=== PATIENT | male | born 1950 | race Caucasian/White ===

== ENCOUNTER 2018-03-22 03:36 | Inpatient (IN) | payer MEDICARE, OTHER ==
[2018-03-22] VITALS (37 sets, daily range): BP systolic 139–212; BP diastolic 70–99
[~2018-03-22] VITALS: Ht 180.3 cm; Wt 76.3 kg
[2018-03-22] MEDS ORDERED: NITROGLYCERIN PREMIX 250 ML IV ONE ×2 (03:59→04:00)
[2018-03-22] MEDS ORDERED: dilTIAZem IV PUSH 25 MG/5 ML VIAL IVP ONE ×2 (04:00→04:30)
[2018-03-22] MEDS ORDERED: dilTIAZem INJ 125 MG in IV DEXTROSE 5% 100ML 100 ML IV PRN (04:00)
[2018-03-22 04:34] LABS: BASO # 0.1 x10^3/uL (0.0-0.2); BASO % 1 % (0-3); EOS # 0.2 x10^3/uL (0.0-0.7); EOS % 1 % (0-3); HEMATOCRIT 56.8 % (39.0-53.0); HEMOGLOBIN 19.5 g/dL (13.0-17.5); LYMPH # 3.3 x10^3/uL (1.0-4.8); LYMPH % 21 % (24-48); MEAN CORPUSCULAR HEMOGLOBIN 30 pg (25-35); MEAN CORPUSCULAR HGB CONC 34 g/dL (31-37); MEAN CORPUSCULAR VOLUME 87 fL (79-100); MONO # 1.4 x10^3/uL (0.0-1.1); MONO % 9 % (0-9); NEUT # 10.5 x10^3uL (1.8-7.7); NEUT % 68 % (31-73); PLATELET COUNT 283 x10^3/uL (140-400); RED BLOOD COUNT 6.51 x10^6/uL (4.30-5.70); RED CELL DISTRIBUTION WIDTH 14.4 % (11.5-14.5); WHITE BLOOD COUNT 15.6 x10^3/uL (4.0-11.0)
[2018-03-22 04:45] LABS: PROTHROMBIN TIME PATIENT 12.8 SEC (11.7-14.0)
[2018-03-22] MEDS ORDERED: IV NORMAL SALINE 1000ML BAG 1,000 ML IV ONE (04:45)
[2018-03-22 04:47] LABS: CALCIUM 9.5 mg/dL (8.5-10.1); CREATININE 0.9 mg/dL (0.7-1.3); GFR 83.9; POTASSIUM 4.2 mmol/L (3.5-5.1)
[2018-03-22 04:52] LABS: ALBUMIN/GLOBULIN RATIO 1.1 (1.0-1.7); MAGNESIUM 2.1 mg/dL (1.8-2.4); TOTAL BILIRUBIN 0.5 mg/dL (0.2-1.0); TOTAL PROTEIN 7.7 g/dL (6.4-8.2)
[2018-03-22] MEDS ORDERED: APIXABAN 5 MG TABLET. PO ONE (05:00)
[2018-03-22] MEDS ORDERED: NITROGLYCERIN SUBLINGUAL 0.4 MG BOTTLE OF 25. SL PRN (05:00)
[2018-03-22 05:22] LABS: BILIRUBIN,URINE NEGATIVE (NEG); CLARITY,URINE CLEAR; COLOR,URINE YELLOW; NITRITE,URINE NEGATIVE (NEG); PH,URINE 7.5; PROTEIN,URINE NEGATIVE (NEG-TRACE); UROBILINOGEN,URINE 0.2 mg/dL (0.2 mg/dL)
[2018-03-22 05:29] LABS: BARBITURATES NEG (NEG); BENZODIAZEPINES NEG (NEG); CANNABINOIDS NEG (NEG); COCAINE NEG (NEG); METHADONE NEG (NEG); OPIATES NEG (NEG); PHENCYCLIDINE NEG (NEG)
[2018-03-22 05:31] LABS: AMPHETAMINE/METHAMPHETAMINE NEG (NEG)
--- NOTE | 2018-03-22 05:36 | PHYS DOC ---
Past Medical History Past Medical History: Hypertension Past Surgical History: No Surgical History Alcohol Use: Sober Drug Use: None Adult General Chief Complaint Chief Complaint: CHEST PAIN-CARDIAC NATURE HPI HPI Patient is a 67 year old 67 YO M BIBA WITH CP sudden onset while watching TV 1 hour prior to arrival so she with heart palpitations and left shoulder discomfort heart rate of 160s with paramedics never happened to him before has not seen a doctor in 7 years no definite medical history he does occasionally drink but he stopped about 3 months ago. Denies drug use. No previous history of atrial fibrillation . PAIN MODEATE PRESSURE RADIATING TO SHOULDER IMPROVED NOW Review of Systems Review of Systems Constitutional: Denies fever or chills [] Eyes: Denies change in visual acuity, redness, or eye pain [] HENT: Denies nasal congestion or sore throat [] Respiratory: Musculoskeletal: Denies back pain or joint pain [] Neurologic: Denies headache, focal weakness or sensory changes [] All other systems were reviewed and found to be within normal limits, except as documented in this note. Current Medications Current Medications Current Medications Medications (Trade) Dose Ordered Sig/Brooks Start Time Stop Time Status Last Admin Dose Admin Apixaban (Eliquis) 5 mg 1X ONCE 03/22/18 05:00 03/22/18 05:01 DC 03/22/18 05:03 5 MG Diltiazem HCl (Cardizem Iv Push) 20 mg 1X ONCE 03/22/18 04:30 03/22/18 04:31 DC 03/22/18 04:20 20 MG Diltiazem HCl 125 mg/Dextrose 125 ml @ 5 mls/hr CONT PRN 03/22/18 04:00 03/22/18 04:10 5 MLS/HR Nitroglycerin (Nitrostat) 0.4 mg PRN Q5MIN PRN 03/22/18 05:00 03/23/18 04:59 Nitroglycerin/ Dextrose 250 ml @ As Directed STK-MED ONCE 03/22/18 03:59 03/22/18 04:00 DC Sodium Chloride 1,000 ml @ 1,000 mls/hr 1X ONCE 03/22/18 04:45 03/22/18 05:44 Allergies Allergies Allergies Coded Allergies Type Severity Reaction Last Updated Verified No Known Drug Allergies 03/22/18 No Physical Exam Physical Exam Constitutional: Well developed, well nourished, MILD DISTRESS non-toxic appearance. [] HENT: Normocephalic, atraumatic, bilateral external ears normal, oropharynx moist, no oral exudates, nose normal. [] Eyes: PERRLA, EOMI, conjunctiva normal, no discharge. [] Neck: Normal range of motion, no tenderness, supple, no stridor. [] Cardiovascular:TACHY IRREGULAR Lungs & Thorax: Bilateral breath sounds clear to auscultation [] Abdomen: Bowel sounds normal, soft, no tenderness, no masses, no pulsatile masses. [] Skin: Warm, dry, no erythema, no rash. [] Back: No tenderness, no CVA tenderness. [] Extremities: No tenderness, no cyanosis, no clubbing, ROM intact, no edema. [] Neurologic: Alert and oriented X 3, normal motor function, normal sensory function, no focal deficits noted. [] Psychologic: Affect normal, judgement normal, mood normal. [] Current Patient Data Vital Signs Vital Signs Date Time Temp Pulse Resp B/P (MAP) Pulse Ox O2 Delivery O2 Flow Rate FiO2 03/22/18 04:20 144 198/113 03/22/18 04:19 97.7 25 95 Room Air 97.7 Lab Values Laboratory Tests Test 03/22/18 04:20 White Blood Count 15.6 x10^3/uL (4.0-11.0) H Red Blood Count 6.51 x10^6/uL (4.30-5.70) H Hemoglobin 19.5 g/dL (13.0-17.5) H Hematocrit 56.8 % (39.0-53.0) H Mean Corpuscular Volume 87 fL (79-100) Mean Corpuscular Hemoglobin 30 pg (25-35) Mean Corpuscular Hemoglobin Concent 34 g/dL (31-37) Red Cell Distribution Width 14.4 % (11.5-14.5) Platelet Count 283 x10^3/uL (140-400) Neutrophils (%) (Auto) 68 % (31-73) Lymphocytes (%) (Auto) 21 % (24-48) L Monocytes (%) (Auto) 9 % (0-9) Eosinophils (%) (Auto) 1 % (0-3) Basophils (%) (Auto) 1 % (0-3) Neutrophils # (Auto) 10.5 x10^3uL (1.8-7.7) H Lymphocytes # (Auto) 3.3 x10^3/uL (1.0-4.8) Monocytes # (Auto) 1.4 x10^3/uL (0.0-1.1) H Eosinophils # (Auto) 0.2 x10^3/uL (0.0-0.7) Basophils # (Auto) 0.1 x10^3/uL (0.0-0.2) Prothrombin Time 12.8 SEC (11.7-14.0) Prothrombin Time INR 1.0 (0.8-1.1) Sodium Level 140 mmol/L (136-145) Potassium Level 4.2 mmol/L (3.5-5.1) Chloride Level 102 mmol/L (98-107) Carbon Dioxide Level 25 mmol/L (21-32) Anion Gap 13 (6-14) Blood Urea Nitrogen 11 mg/dL (8-26) Creatinine 0.9 mg/dL (0.7-1.3) Estimated GFR (Cockcroft-Gault) 83.9 BUN/Creatinine Ratio 12 (6-20) Glucose Level 126 mg/dL (70-99) H Calcium Level 9.5 mg/dL (8.5-10.1) Magnesium Level 2.1 mg/dL (1.8-2.4) Total Bilirubin 0.5 mg/dL (0.2-1.0) Aspartate Amino Transferase (AST) 16 U/L (15-37) Alanine Aminotransferase (ALT) 17 U/L (16-63) Alkaline Phosphatase 101 U/L (46-116) Troponin I Quantitative < 0.017 ng/mL (0.000-0.055) ZQ-Lcj-Y-Type Natriuretic Peptide 323 pg/mL (0-124) H Total Protein 7.7 g/dL (6.4-8.2) Albumin 4.0 g/dL (3.4-5.0) Albumin/Globulin Ratio 1.1 (1.0-1.7) Thyroid Stimulating Hormone (TSH) 3.030 uIU/mL (0.358-3.74) Ethyl Alcohol Level < 10 mg/dL (0-10) Laboratory Tests 03/22/18 04:20 Laboratory Tests 03/22/18 04:20 EKG EKG [] Interpretation Time: EKG shows a A. fib RVR rate [address] changes laterally there is some borderline ST elevation in aVL only on repeat EKG done at 4:36 AM after rate control the rate is now 108 A. fib is seen the ST changes are improved but still some borderline ST depressions in the lateral leads. This is interpreted by me the time of encounter no definite STEMI was identified Radiology/Procedures Radiology/Procedures [] Impressions: Chest x-ray interpreted by me the time of encounter showed normal lungs normal mediastinum normal bones Course & Med Decision Making Course & Med Decision Making Critical care time was 45 minutes exclusive of procedures.Pertinent Labs and Imaging studies reviewed. (See chart for details) []67-year-old male with hypertensive urgency and atrial fibrillation with RVR requiring intravenous drips and titration we started with diltiazem drip that improved her heart rate down into the 04/11/29 range we are still working on that. The nitro drip did improve his blood pressure we temporarily turned off and his pressure spiked again so he will be admitted to [facility] with a nitroglycerin and diltiazem drip. Labwork is looking fairly reassuring for now I did order a dose of QLIQUIS given his elevated blood pressure in his age she likely will meet criteria for that based onCHADS2 score NOTED THE WBC, CXR NEG FOR PNA, ADDED ON A U/A PENDING AT THSI TIME. NOTED THE ELEVATED HB, PT WAS HYDRATED. Dragon Disclaimer Dragon Disclaimer This electronic medical record was generated, in whole or in part, using a voice recognition dictation system. Departure Departure Impression: Primary Impression: Atrial fibrillation with RVR Disposition: ADMITTED INPATIENT Admitting Physician: Xie. Loya Condition: STABLE Referrals: NO PCP (PCP) MISTY LOONEY MD Mar 22, 2018 05:35
[2018-03-22 05:37] LABS: BACTERIA,URINE 0 /HPF (0-FEW); SQUAMOUS EPITHELIAL CELL,UR OCC /LPF; WBC,URINE 0 /HPF (0-4)
--- NOTE | 2018-03-22 07:43 | RAD ---
Portable chest, 03/22/2018: HISTORY: Shortness of breath The heart size is normal. There is mild tortuosity of the thoracic aorta. There are calcified granulomata in the lungs. No pulmonary infiltrate is seen. There is no evidence of pleural fluid. IMPRESSION: No acute cardiopulmonary abnormality is detected. Electronically signed by: Robbin Givens MD (03/22/2018 7:39 AM) [facility]
--- NOTE | 2018-03-22 08:13 | EKG ---
[facility] [address] [place] [address] Test Date: 2018-03-22 Test Time: 04:36:14 Pat Name: GABE LOVE Department: Room: 207 Gender: Male Inspector Exhaust Emissions: : 1950 Requested By: MISTY LOONEY Order Number: [id number] Reading MD: Avery Francis Measurements Intervals [place] Rate: 108 P: AK: QRS: 56 QRSD: 80 T: 91 QT: 314 QTc: 424 Interpretive Statements ATRIAL FIBRILLATION Electronically Signed On 03-25-2018 17:16:14 [employer] CLE[employer]ER by Avery Francis
[2018-03-22] MEDS ORDERED: traMADol 50 MG TABLET PO PRN (10:00)
[2018-03-22] MEDS ORDERED: ACETAMINOPHEN 325 MG TABLET. PO PRN (10:00)
[2018-03-22] MEDS ORDERED: ONDANSETRON PF 4 MG/2 ML VIAL. IV PRN (10:00)
[2018-03-22] MEDS ORDERED: DOCUSATE SODIUM 100 MG CAPSULE. PO PRN (10:00)
[2018-03-22] MEDS ORDERED: MORPHINE SULFATE 4 MG/ML VIAL. IV PRN (10:00)
[2018-03-22] MEDS: LISINOPRIL 20 MG TABLET PO SCH (10:24)
--- NOTE | 2018-03-22 11:06 | PDOC2 ---
CONSULT Date of Consult Date of Consult DATE: 03/22/18 TIME: 11:05 Reason for Consult Reason for Consult: Atrial fibrillation Referring Physician Referring Physician: Dr. Costa Identification/Chief Complaint Chief Complaint Chest pain Source Source: Chart review, Patient History of Present Illness Reason for Visit: 67-year-old male presented complaining of retrosternal chest pain associated with dizziness and near syncope. He was found to have atrial fibrillation with rapid ventricular response and accelerated hypertension and admitted for further management. He is presented chest pain-free. He denied any previous cardiac history. He also denied any orthopnea/PND, palpitations. Past Medical History Cardiovascular: HTN Past Surgical History Past Surgical History: No pertinent history Family History Family History Negative for premature coronary artery disease Social History Social History Patient smokes one pack of cigarettes daily and admitted to occasional intake of alcohol. He denied any drug abuse. Current Medications Current Medications Current Medications Diltiazem HCl (Cardizem Iv Push) 10 mg 1X ONCE IVP Last administered on at 04:05; Start 03/22/18 at 04:00; Stop 03/22/18 at 04:01; Status DC Diltiazem HCl 125 mg/Dextrose 125 ml @ 5 mls/hr CONT PRN IV SEE I/O RECORD Last administered on 03/22/18at 04:10; Start 03/22/18 at 04:00; Stop 03/22/18 at 21: 00 Nitroglycerin/ Dextrose 250 ml @ 0 mls/hr 1X ONCE IV Last administered on at 04:13; Start 03/22/18 at 04:00; Stop 03/22/18 at 04:01; Status DC Nitroglycerin/ Dextrose 250 ml @ As Directed STK-MED ONCE IV ; Start 03/22/18 at 03:59; Stop 03/22/18 at 04:00; Status DC Diltiazem HCl (Cardizem Iv Push) 20 mg 1X ONCE IVP Last administered on at 04:20; Start 03/22/18 at 04:30; Stop 03/22/18 at 04:31; Status DC Sodium Chloride 1,000 ml @ 1,000 mls/hr 1X ONCE IV Last administered on at 05:30; Start 03/22/18 at 04:45; Stop 03/22/18 at 05:44; Status DC Apixaban (Eliquis) 5 mg 1X ONCE PO Last administered on 03/22/18at 05:03; Start 03/22/18 at 05:00; Stop 03/22/18 at 05:01; Status DC Nitroglycerin (Nitrostat) 0.4 mg PRN Q5MIN PRN SL CHEST PAIN; Start 03/22/18 at 05:00; Stop 03/23/18 at 04:59 Influenza Virus Vaccine (Afluria Trivalent [id number] Syringe) 0.5 ml ONCE ONCE VAX IM ; Start 03/22/18 at 09:00; Stop 03/22/18 at 09:01; Status DC Diltiazem HCl (Cardizem 24hr Cd) 120 mg DAILY PO Last administered on 03/22/18at 09:48; Start 03/22/18 at 10:00 Apixaban (Eliquis) 5 mg BID PO ; Start 03/22/18 at 21:00 Acetaminophen (Tylenol) 650 mg PRN Q6HRS PRN PO FEVER; Start 03/22/18 at 10:00 Ondansetron HCl (Zofran) 4 mg PRN Q6HRS PRN IV NAUSEA/VOMITING; Start 03/22/18 at 10:00 Morphine Sulfate (Morphine Sulfate) 2 mg PRN Q2HR PRN IV MODERATE TO SEVERE PAIN; Start 03/22/18 at 10:00 Tramadol HCl (Ultram) 50 mg PRN Q6HRS PRN PO MILD TO MODERATE PAIN; Start at 10:00 Hydralazine HCl (Apresoline Inj) 10 mg PRN Q4HRS PRN IVP ELEVATED BP, SEE COMMENTS; Start 03/22/18 at 10:00 Docusate Sodium (Colace) 100 mg PRN DAILY PRN PO CONSTIPATION; Start 03/22/18 at 10:00 Lisinopril (Prinivil) 40 mg DAILY PO Last administered on 03/22/18at 10:24; Start 03/22/18 at 10:30 Allergies Allergies: Coded Allergies: No Known Drug Allergies (Unverified , 03/22/18) ROS PSYCHOLOGICAL ROS: No: Hallucinations Eyes: No Loss of vision HEENT: No: Epistaxis Respiratory: No: Hemoptysis, Shortness of breath Cardiovascular: yes Chest Pain Gastrointestinal: No Vomiting, No Diarrhea Genitourinary: No Hematuria Neurological: No Seizures Skin: No Rash Physical Exam General: Alert, Oriented X3 HEENT: Atraumatic, PERRLA Lungs: Clear to auscultation Heart: Regular rate Abdomen: Soft, No tenderness Extremities: No edema Psych/Mental Status: Mood NL Vitals VITALS Vital Signs Date Time Temp Pulse Resp B/P (MAP) Pulse Ox O2 Delivery O2 Flow Rate FiO2 03/22/18 10:24 68 184/87 03/22/18 08:00 Room Air 03/22/18 07:20 98.5 20 96 98.5 Labs Labs Laboratory Tests Test 03/22/18 04:20 03/22/18 05:09 03/22/18 09:42 White Blood Count 15.6 x10^3/uL (4.0-11.0) Red Blood Count 6.51 x10^6/uL (4.30-5.70) Hemoglobin 19.5 g/dL (13.0-17.5) Hematocrit 56.8 % (39.0-53.0) Mean Corpuscular Volume 87 fL (79-100) Mean Corpuscular Hemoglobin 30 pg (25-35) Mean Corpuscular Hemoglobin Concent 34 g/dL (31-37) Red Cell Distribution Width 14.4 % (11.5-14.5) Platelet Count 283 x10^3/uL (140-400) Neutrophils (%) (Auto) 68 % (31-73) Lymphocytes (%) (Auto) 21 % (24-48) Monocytes (%) (Auto) 9 % (0-9) Eosinophils (%) (Auto) 1 % (0-3) Basophils (%) (Auto) 1 % (0-3) Neutrophils # (Auto) 10.5 x10^3uL (1.8-7.7) Lymphocytes # (Auto) 3.3 x10^3/uL (1.0-4.8) Monocytes # (Auto) 1.4 x10^3/uL (0.0-1.1) Eosinophils # (Auto) 0.2 x10^3/uL (0.0-0.7) Basophils # (Auto) 0.1 x10^3/uL (0.0-0.2) Prothrombin Time 12.8 SEC (11.7-14.0) Prothromb Time International Ratio 1.0 (0.8-1.1) Sodium Level 140 mmol/L (136-145) Potassium Level 4.2 mmol/L (3.5-5.1) Chloride Level 102 mmol/L (98-107) Carbon Dioxide Level 25 mmol/L (21-32) Anion Gap 13 (6-14) Blood Urea Nitrogen 11 mg/dL (8-26) Creatinine 0.9 mg/dL (0.7-1.3) Estimated GFR (Cockcroft-Gault) 83.9 BUN/Creatinine Ratio 12 (6-20) Glucose Level 126 mg/dL (70-99) Calcium Level 9.5 mg/dL (8.5-10.1) Magnesium Level 2.1 mg/dL (1.8-2.4) Total Bilirubin 0.5 mg/dL (0.2-1.0) Aspartate Amino Transf (AST/SGOT) 16 U/L (15-37) Alanine Aminotransferase (ALT/SGPT) 17 U/L (16-63) Alkaline Phosphatase 101 U/L (46-116) Troponin I Quantitative < 0.017 ng/mL (0.000-0.055) 0.042 ng/mL (0.000-0.055) DM-Yqh-F-Type Natriuretic Peptide 323 pg/mL (0-124) Total Protein 7.7 g/dL (6.4-8.2) Albumin 4.0 g/dL (3.4-5.0) Albumin/Globulin Ratio 1.1 (1.0-1.7) Thyroid Stimulating Hormone (TSH) 3.030 uIU/mL (0.358-3.74) Ethyl Alcohol Level < 10 mg/dL (0-10) Urine Collection Type Unknown Urine Color Yellow Urine Clarity Clear Urine pH 7.5 Urine Specific [place] 1.010 Urine Protein Negative mg/dL (NEG-TRACE) Urine Glucose (UA) Negative mg/dL (NEG) Urine Ketones (Stick) Trace mg/dL (NEG) Urine Blood Trace (NEG) Urine Nitrite Negative (NEG) Urine Bilirubin Negative (NEG) Urine Urobilinogen Dipstick 0.2 mg/dL (0.2 mg/dL) Urine Leukocyte Esterase Negative (NEG) Urine RBC 3-5 /HPF (0-2) Urine WBC 0 /HPF (0-4) Urine Squamous Epithelial Cells Occ /LPF Urine Bacteria 0 /HPF (0-FEW) Urine Mucus Slight /LPF Urine Opiates Screen Neg (NEG) Urine Methadone Screen Neg (NEG) Urine Barbiturates Neg (NEG) Urine Phencyclidine Screen Neg (NEG) Urine Amphetamine/Methamphetamine Neg (NEG) Urine Benzodiazepines Screen Neg (NEG) Urine Cocaine Screen Neg (NEG) Urine Cannabinoids Screen Neg (NEG) Urine Ethyl Alcohol Neg (NEG) Laboratory Tests Test 03/22/18 04:20 03/22/18 05:09 03/22/18 09:42 White Blood Count 15.6 x10^3/uL (4.0-11.0) Red Blood Count 6.51 x10^6/uL (4.30-5.70) Hemoglobin 19.5 g/dL (13.0-17.5) Hematocrit 56.8 % (39.0-53.0) Mean Corpuscular Volume 87 fL (79-100) Mean Corpuscular Hemoglobin 30 pg (25-35) Mean Corpuscular Hemoglobin Concent 34 g/dL (31-37) Red Cell Distribution Width 14.4 % (11.5-14.5) Platelet Count 283 x10^3/uL (140-400) Neutrophils (%) (Auto) 68 % (31-73) Lymphocytes (%) (Auto) 21 % (24-48) Monocytes (%) (Auto) 9 % (0-9) Eosinophils (%) (Auto) 1 % (0-3) Basophils (%) (Auto) 1 % (0-3) Neutrophils # (Auto) 10.5 x10^3uL (1.8-7.7) Lymphocytes # (Auto) 3.3 x10^3/uL (1.0-4.8) Monocytes # (Auto) 1.4 x10^3/uL (0.0-1.1) Eosinophils # (Auto) 0.2 x10^3/uL (0.0-0.7) Basophils # (Auto) 0.1 x10^3/uL (0.0-0.2) Prothrombin Time 12.8 SEC (11.7-14.0) Prothromb Time International Ratio 1.0 (0.8-1.1) Sodium Level 140 mmol/L (136-145) Potassium Level 4.2 mmol/L (3.5-5.1) Chloride Level 102 mmol/L (98-107) Carbon Dioxide Level 25 mmol/L (21-32) Anion Gap 13 (6-14) Blood Urea Nitrogen 11 mg/dL (8-26) Creatinine 0.9 mg/dL (0.7-1.3) Estimated GFR (Cockcroft-Gault) 83.9 BUN/Creatinine Ratio 12 (6-20) Glucose Level 126 mg/dL (70-99) Calcium Level 9.5 mg/dL (8.5-10.1) Magnesium Level 2.1 mg/dL (1.8-2.4) Total Bilirubin 0.5 mg/dL (0.2-1.0) Aspartate Amino Transf (AST/SGOT) 16 U/L (15-37) Alanine Aminotransferase (ALT/SGPT) 17 U/L (16-63) Alkaline Phosphatase 101 U/L (46-116) Troponin I Quantitative < 0.017 ng/mL (0.000-0.055) 0.042 ng/mL (0.000-0.055) GP-Kdc-M-Type Natriuretic Peptide 323 pg/mL (0-124) Total Protein 7.7 g/dL (6.4-8.2) Albumin 4.0 g/dL (3.4-5.0) Albumin/Globulin Ratio 1.1 (1.0-1.7) Thyroid Stimulating Hormone (TSH) 3.030 uIU/mL (0.358-3.74) Ethyl Alcohol Level < 10 mg/dL (0-10) Urine Collection Type Unknown Urine Color Yellow Urine Clarity Clear Urine pH 7.5 Urine Specific [place] 1.010 Urine Protein Negative mg/dL (NEG-TRACE) Urine Glucose (UA) Negative mg/dL (NEG) Urine Ketones (Stick) Trace mg/dL (NEG) Urine Blood Trace (NEG) Urine Nitrite Negative (NEG) Urine Bilirubin Negative (NEG) Urine Urobilinogen Dipstick 0.2 mg/dL (0.2 mg/dL) Urine Leukocyte Esterase Negative (NEG) Urine RBC 3-5 /HPF (0-2) Urine WBC 0 /HPF (0-4) Urine Squamous Epithelial Cells Occ /LPF Urine Bacteria 0 /HPF (0-FEW) Urine Mucus Slight /LPF Urine Opiates Screen Neg (NEG) Urine Methadone Screen Neg (NEG) Urine Barbiturates Neg (NEG) Urine Phencyclidine Screen Neg (NEG) Urine Amphetamine/Methamphetamine Neg (NEG) Urine Benzodiazepines Screen Neg (NEG) Urine Cocaine Screen Neg (NEG) Urine Cannabinoids Screen Neg (NEG) Urine Ethyl Alcohol Neg (NEG) Assessment/Plan Assessment/Plan 1. Atrial fibrillation, new onset. He is presently back in sinus rhythm. Change Cardizem to by mouth and start eliquis for stroke prophylaxis. Check 2-D echo to assess LV systolic function. 2. Accelerated hypertension: Agree with adding lisinopril in addition to Cardizem for better control. Check renal arterial duplex scan. 3. Chest pain most probably secondary to accelerated hypertension. Slight troponin elevation probably demand ischemia secondary to RVR and uncontrolled hypertension. Plan for Lexiscan nuclear stress test to rule out ischemia. Thank you for your consultation. MILIND ABDALLA MD Mar 22, 2018 11:06
--- NOTE | 2018-03-22 12:10 | PDOC1 ---
History and Physical Date of Admission Date of Admission 03/22/18 Identification/Chief Complaint Chief Complaint chest pain Source Source: Chart review, Patient History of Present Illness History of Present Illness Patient is a 67 year old M with h/o HTN, but no PCP or taking meds, came to ER for chest pain for 1 d. Pt said his BP ws not controlled well before so he stop taking meds. He started to have substernal chest pain yesterday, while watching tv, radiating to left shoulder, with diaphoresis, no sob, or N/V, denies palpitation. THE pain was 6/10, constant, gone in ER. he does occasionally drink but he stopped about 3 months ago. Denies drug use. No previous history of atrial fibrillation . he was found rapid afib in ER, now sinus. BP >200. on cardizem and nitro drip. Past Medical History Cardiovascular: HTN Past Surgical History Past Surgical History: No pertinent history Family History Family History: Hypertension Social History Smoke: 1 pack per day ALCOHOL: rare Drugs: None Current Medications Current Medications Current Medications Medications (Trade) Dose Ordered Sig/Brooks Start Time Stop Time Status Last Admin Dose Admin Acetaminophen (Tylenol) 650 mg PRN Q6HRS PRN 03/22/18 10:00 Apixaban (Eliquis) 5 mg BID 03/22/18 21:00 Diltiazem HCl (Cardizem 24hr Cd) 120 mg DAILY 03/22/18 10:00 03/22/18 09:48 120 MG Diltiazem HCl (Cardizem Iv Push) 20 mg 1X ONCE 03/22/18 04:30 03/22/18 04:31 DC 03/22/18 04:20 20 MG Diltiazem HCl 125 mg/Dextrose 125 ml @ 5 mls/hr CONT PRN 03/22/18 04:00 03/22/18 21:00 03/22/18 04:10 5 MLS/HR Docusate Sodium (Colace) 100 mg PRN DAILY PRN 03/22/18 10:00 Hydralazine HCl (Apresoline Inj) 10 mg PRN Q4HRS PRN 03/22/18 10:00 Influenza Virus Vaccine (Afluria Trivalent [id number] Syringe) 0.5 ml ONCE ONCE 03/22/18 09:00 03/22/18 09:01 DC Lisinopril (Prinivil) 40 mg DAILY 03/22/18 10:30 03/22/18 10:24 40 MG Morphine Sulfate (Morphine Sulfate) 2 mg PRN Q2HR PRN 03/22/18 10:00 Nitroglycerin (Nitrostat) 0.4 mg PRN Q5MIN PRN 03/22/18 05:00 03/23/18 04:59 Nitroglycerin/ Dextrose 250 ml @ As Directed STK-MED ONCE 03/22/18 03:59 03/22/18 04:00 DC Ondansetron HCl (Zofran) 4 mg PRN Q6HRS PRN 03/22/18 10:00 Sodium Chloride 1,000 ml @ 1,000 mls/hr 1X ONCE 03/22/18 04:45 03/22/18 05:44 DC 03/22/18 05:30 1,000 MLS/HR Tramadol HCl (Ultram) 50 mg PRN Q6HRS PRN 03/22/18 10:00 Allergies Allergies Allergies Coded Allergies Type Severity Reaction Last Updated Verified No Known Drug Allergies 03/22/18 No ROS Review of System CONSTITUTIONAL: No fever or chills EYES: No recent changes SKIN: No rash or itching CARDIOVASCULAR: No chest pain, syncope, palpitations, or edema RESPIRATORY: No SOB or cough GASTROINTESTINAL: No nausea, vomiting or abdominal pain NEUROLOGICAL: No headaches or weakness ENDOCRINE: No cold or heat intolerance GENITOURINARY: No urgency or frequency of urination MUSCULOSKELETAL: No back pain or joint pain LYMPHATICS: No enlarged lymph nodes PSYCHIATRIC: No anxiety or depression Physical Exam Physical Exam GEN.: No apparent distress. Alert and oriented. HEENT: Head is normocephalic, atraumatic NECK: Supple. LUNGS: bl decreased bs. HEART: RRR, S1, S2 present. Peripheral pulses intact ABDOMEN: Soft, nontender. Positive bowel sounds. EXTREMITIES: Without any cyanosis. NEUROLOGIC: Normal speech, normal tone PSYCHIATRIC: Normal affect, normal mood. SKIN: No ulcerations Vitals Vitals Vital Signs Date Time Temp Pulse Resp B/P (MAP) Pulse Ox O2 Delivery O2 Flow Rate FiO2 03/22/18 11:00 97.8 72 16 164/83 (110) 96 Room Air 97.8 Labs Labs Laboratory Tests Test 03/22/18 04:20 03/22/18 05:09 03/22/18 09:42 White Blood Count 15.6 x10^3/uL (4.0-11.0) Red Blood Count 6.51 x10^6/uL (4.30-5.70) Hemoglobin 19.5 g/dL (13.0-17.5) Hematocrit 56.8 % (39.0-53.0) Mean Corpuscular Volume 87 fL (79-100) Mean Corpuscular Hemoglobin 30 pg (25-35) Mean Corpuscular Hemoglobin Concent 34 g/dL (31-37) Red Cell Distribution Width 14.4 % (11.5-14.5) Platelet Count 283 x10^3/uL (140-400) Neutrophils (%) (Auto) 68 % (31-73) Lymphocytes (%) (Auto) 21 % (24-48) Monocytes (%) (Auto) 9 % (0-9) Eosinophils (%) (Auto) 1 % (0-3) Basophils (%) (Auto) 1 % (0-3) Neutrophils # (Auto) 10.5 x10^3uL (1.8-7.7) Lymphocytes # (Auto) 3.3 x10^3/uL (1.0-4.8) Monocytes # (Auto) 1.4 x10^3/uL (0.0-1.1) Eosinophils # (Auto) 0.2 x10^3/uL (0.0-0.7) Basophils # (Auto) 0.1 x10^3/uL (0.0-0.2) Prothrombin Time 12.8 SEC (11.7-14.0) Prothromb Time International Ratio 1.0 (0.8-1.1) Sodium Level 140 mmol/L (136-145) Potassium Level 4.2 mmol/L (3.5-5.1) Chloride Level 102 mmol/L (98-107) Carbon Dioxide Level 25 mmol/L (21-32) Anion Gap 13 (6-14) Blood Urea Nitrogen 11 mg/dL (8-26) Creatinine 0.9 mg/dL (0.7-1.3) Estimated GFR (Cockcroft-Gault) 83.9 BUN/Creatinine Ratio 12 (6-20) Glucose Level 126 mg/dL (70-99) Calcium Level 9.5 mg/dL (8.5-10.1) Magnesium Level 2.1 mg/dL (1.8-2.4) Total Bilirubin 0.5 mg/dL (0.2-1.0) Aspartate Amino Transf (AST/SGOT) 16 U/L (15-37) Alanine Aminotransferase (ALT/SGPT) 17 U/L (16-63) Alkaline Phosphatase 101 U/L (46-116) Troponin I Quantitative < 0.017 ng/mL (0.000-0.055) 0.042 ng/mL (0.000-0.055) RP-Kri-Q-Type Natriuretic Peptide 323 pg/mL (0-124) Total Protein 7.7 g/dL (6.4-8.2) Albumin 4.0 g/dL (3.4-5.0) Albumin/Globulin Ratio 1.1 (1.0-1.7) Thyroid Stimulating Hormone (TSH) 3.030 uIU/mL (0.358-3.74) Ethyl Alcohol Level < 10 mg/dL (0-10) Urine Collection Type Unknown Urine Color Yellow Urine Clarity Clear Urine pH 7.5 Urine Specific [place] 1.010 Urine Protein Negative mg/dL (NEG-TRACE) Urine Glucose (UA) Negative mg/dL (NEG) Urine Ketones (Stick) Trace mg/dL (NEG) Urine Blood Trace (NEG) Urine Nitrite Negative (NEG) Urine Bilirubin Negative (NEG) Urine Urobilinogen Dipstick 0.2 mg/dL (0.2 mg/dL) Urine Leukocyte Esterase Negative (NEG) Urine RBC 3-5 /HPF (0-2) Urine WBC 0 /HPF (0-4) Urine Squamous Epithelial Cells Occ /LPF Urine Bacteria 0 /HPF (0-FEW) Urine Mucus Slight /LPF Urine Opiates Screen Neg (NEG) Urine Methadone Screen Neg (NEG) Urine Barbiturates Neg (NEG) Urine Phencyclidine Screen Neg (NEG) Urine Amphetamine/Methamphetamine Neg (NEG) Urine Benzodiazepines Screen Neg (NEG) Urine Cocaine Screen Neg (NEG) Urine Cannabinoids Screen Neg (NEG) Urine Ethyl Alcohol Neg (NEG) Laboratory Tests Test 03/22/18 04:20 03/22/18 05:09 03/22/18 09:42 White Blood Count 15.6 x10^3/uL (4.0-11.0) Red Blood Count 6.51 x10^6/uL (4.30-5.70) Hemoglobin 19.5 g/dL (13.0-17.5) Hematocrit 56.8 % (39.0-53.0) Mean Corpuscular Volume 87 fL (79-100) Mean Corpuscular Hemoglobin 30 pg (25-35) Mean Corpuscular Hemoglobin Concent 34 g/dL (31-37) Red Cell Distribution Width 14.4 % (11.5-14.5) Platelet Count 283 x10^3/uL (140-400) Neutrophils (%) (Auto) 68 % (31-73) Lymphocytes (%) (Auto) 21 % (24-48) Monocytes (%) (Auto) 9 % (0-9) Eosinophils (%) (Auto) 1 % (0-3) Basophils (%) (Auto) 1 % (0-3) Neutrophils # (Auto) 10.5 x10^3uL (1.8-7.7) Lymphocytes # (Auto) 3.3 x10^3/uL (1.0-4.8) Monocytes # (Auto) 1.4 x10^3/uL (0.0-1.1) Eosinophils # (Auto) 0.2 x10^3/uL (0.0-0.7) Basophils # (Auto) 0.1 x10^3/uL (0.0-0.2) Prothrombin Time 12.8 SEC (11.7-14.0) Prothromb Time International Ratio 1.0 (0.8-1.1) Sodium Level 140 mmol/L (136-145) Potassium Level 4.2 mmol/L (3.5-5.1) Chloride Level 102 mmol/L (98-107) Carbon Dioxide Level 25 mmol/L (21-32) Anion Gap 13 (6-14) Blood Urea Nitrogen 11 mg/dL (8-26) Creatinine 0.9 mg/dL (0.7-1.3) Estimated GFR (Cockcroft-Gault) 83.9 BUN/Creatinine Ratio 12 (6-20) Glucose Level 126 mg/dL (70-99) Calcium Level 9.5 mg/dL (8.5-10.1) Magnesium Level 2.1 mg/dL (1.8-2.4) Total Bilirubin 0.5 mg/dL (0.2-1.0) Aspartate Amino Transf (AST/SGOT) 16 U/L (15-37) Alanine Aminotransferase (ALT/SGPT) 17 U/L (16-63) Alkaline Phosphatase 101 U/L (46-116) Troponin I Quantitative < 0.017 ng/mL (0.000-0.055) 0.042 ng/mL (0.000-0.055) WH-Aqc-A-Type Natriuretic Peptide 323 pg/mL (0-124) Total Protein 7.7 g/dL (6.4-8.2) Albumin 4.0 g/dL (3.4-5.0) Albumin/Globulin Ratio 1.1 (1.0-1.7) Thyroid Stimulating Hormone (TSH) 3.030 uIU/mL (0.358-3.74) Ethyl Alcohol Level < 10 mg/dL (0-10) Urine Collection Type Unknown Urine Color Yellow Urine Clarity Clear Urine pH 7.5 Urine Specific [place] 1.010 Urine Protein Negative mg/dL (NEG-TRACE) Urine Glucose (UA) Negative mg/dL (NEG) Urine Ketones (Stick) Trace mg/dL (NEG) Urine Blood Trace (NEG) Urine Nitrite Negative (NEG) Urine Bilirubin Negative (NEG) Urine Urobilinogen Dipstick 0.2 mg/dL (0.2 mg/dL) Urine Leukocyte Esterase Negative (NEG) Urine RBC 3-5 /HPF (0-2) Urine WBC 0 /HPF (0-4) Urine Squamous Epithelial Cells Occ /LPF Urine Bacteria 0 /HPF (0-FEW) Urine Mucus Slight /LPF Urine Opiates Screen Neg (NEG) Urine Methadone Screen Neg (NEG) Urine Barbiturates Neg (NEG) Urine Phencyclidine Screen Neg (NEG) Urine Amphetamine/Methamphetamine Neg (NEG) Urine Benzodiazepines Screen Neg (NEG) Urine Cocaine Screen Neg (NEG) Urine Cannabinoids Screen Neg (NEG) Urine Ethyl Alcohol Neg (NEG) VTE Prophylaxis Ordered VTE Prophylaxis Devices: Yes VTE Pharmacological Prophylaxi: No Assessment/Plan Assessment/Plan chest pain, could be unstable angina, with rapid afib, HTN urgency HTN urgency New onset rapid afib tobaccoism plan: fu with card check CE, neg so far check echo, tsh, lipid panel add cardizem as per card, taper cardizem and nitro drip add lisinopril educated pt to dc smoking add eliquis if ok with card pt wanna go home, if so, AMA. TRAN MICHELLE MD Mar 22, 2018 12:10
[2018-03-22] MEDS: hydrALAZINE 20 MG/ML VIAL. IVP PRN (17:00)
[2018-03-22] MEDS ORDERED: ANTI-COAG MONITOR BY PHARMACY. MC PRN (17:45)
[2018-03-22] MEDS: LABETALOL HCL 200 MG TABLET PO SCH (18:30)
[2018-03-22] MEDS: APIXABAN 5 MG TABLET. PO SCH (20:20)
--- NOTE | 2018-03-22 23:54 | RAD ---
RENAL ARTERY ARTERIAL DOPPLER ULTRASOUND Clinical Indication: HTN EVAL FOR STENOSIS, Comparison: None. Technique: Multiple grayscale, color flow, and Doppler spectral waveform analysis images of the abdominal aorta and renal arteries were obtained. Findings: Abdominal aorta peak systolic velocity: 61 cm/sec. The proximal abdominal aorta diameter is 4 cm. The mid abdominal aorta diameter is 4.4 x 4.7 cm. There appears to be mural thrombus. Distal abdominal aorta diameters 3.4 cm. Right main renal artery peak systolic velocity: 278 cm/sec. Right renal artery to aorta ratio: 4.5 Left main renal artery peak systolic velocity: 158 cm/sec. Left renal artery to aorta ratio: 2.5 Renal veins are patent. The right kidney measures 9.8 cm. The left kidney measures 9.9 cm. Kidneys are normal in echotexture. No hydronephrosis. IMPRESSION: 1. 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 2. Abdominal aortic aneurysm. Electronically signed by: Dinh Rios MD (03/22/2018 11:50 PM) [facility]
[2018-03-23 00:05] VITALS: BP 183/84
[2018-03-23] MEDS: hydrALAZINE 20 MG/ML VIAL. IVP PRN (00:08)
[2018-03-23 03:15] VITALS: BP 127/58
[2018-03-23 04:51] LABS: BASO % 0 % (0-3); EOS # 0.1 x10^3/uL (0.0-0.7); EOS % 1 % (0-3); HEMATOCRIT 50.6 % (39.0-53.0); HEMOGLOBIN 16.5 g/dL (13.0-17.5); LYMPH # 2.9 x10^3/uL (1.0-4.8); LYMPH % 21 % (24-48); MEAN CORPUSCULAR HEMOGLOBIN 30 pg (25-35); MEAN CORPUSCULAR HGB CONC 33 g/dL (31-37); MEAN CORPUSCULAR VOLUME 92 fL (79-100); MONO % 8 % (0-9); NEUT # 9.5 x10^3uL (1.8-7.7); NEUT % 70 % (31-73); PLATELET COUNT 260 x10^3/uL (140-400); RED BLOOD COUNT 5.48 x10^6/uL (4.30-5.70); RED CELL DISTRIBUTION WIDTH 15.6 % (11.5-14.5); WHITE BLOOD COUNT 13.5 x10^3/uL (4.0-11.0)
[2018-03-23 04:54] LABS: CALCIUM 8.9 mg/dL (8.5-10.1); CREATININE 1.1 mg/dL (0.7-1.3); GFR 66.6; POTASSIUM 4.1 mmol/L (3.5-5.1)
[2018-03-23 05:01] LABS: CHOLESTEROL/HDL RATIO 5.1
[2018-03-23 07:00] VITALS: BP 149/71
[2018-03-23] MEDS ORDERED: REGADENOSON 0.4 MG/5 ML DISP.SYRIN. IV ONE (07:30)
[2018-03-23] MEDS: APIXABAN 5 MG TABLET. PO SCH (10:02)
[2018-03-23] MEDS: LISINOPRIL 20 MG TABLET PO SCH (10:02)
[2018-03-23] MEDS: LABETALOL HCL 200 MG TABLET PO SCH (10:03)
--- NOTE | 2018-03-23 10:16 | CARD ---
MR#: [id number] Date of Study: 03/23/2018 Ordering Physician: TRAN MICHELLE, Referring Physician: TRAN MICHELLE, Tech: Unique Manuel APPROVED REPORT EXAM: Two-dimensional and M-mode echocardiogram with Doppler and color Doppler. Other Information Quality : AverageHR: 73bpm INDICATION Atrial Fibrillation Chest Pain RISK FACTORS Hypertension Smoking 2D DIMENSIONS RVDd2.3 (2.9-3.5cm)Left Atrium(2D)3.6 (1.6-4.0cm) IVSd1.5 (0.7-1.1cm)Aortic Root(2D)3.2 (2.0-3.7cm) LVDd5.0 (3.9-5.9cm)LVOT Diameter2.3 (1.8-2.4cm) PWd1.0 (0.7-1.1cm)LVDs2.6 (2.5-4.0cm) FS (%) 47.5 %SV92.1 ml LVEF(%)78.7 (>50%) Aortic Valve AoV Peak Peter.172.7cm/sAoV VTI29.7cm AO Peak GR.11.9mmHgLVOT Peak Peter.124.9cm/s LVOT VTI 23.98cmAO Mean GR.5mmHg ERICK (VMAX)2.34om6XFC (VTI)3.29cm2 Mitral Valve MV E Ovjssoxb56.3cm/sMV DECEL QCNB685ds MV A Jsvhdtbt13.5cm/sMV AFG38di E/A Ratio1.4MVA (PHT)3.16cm2 TDI E/Lateral E'12.3E/Medial E'15.8 Pulmonary Valve PV Peak Fpcmhsaw724.7cm/sPV Peak Grad.7mmHg Pulmonary Vein S1 Jvmkxckh70.7cm/sD2 Gfxjxqux86.3cm/s PVa [id number] LEFT VENTRICLE The left ventricle is normal size. There is normal left ventricular wall thickness. The left ventricu lar systolic function is normal. The ejection fraction is estimated at 65%. There is normal LV segmen lamont wall motion. Transmitral Doppler flow pattern is Grade II-pseudonormal filling dynamics. RIGHT VENTRICLE The right ventricle is normal size. There is normal right ventricular wall thickness. The right ventr icular systolic function is normal. ATRIA The left atrium size is normal. The right atrium size is normal. The interatrial septum is intact wit h no evidence for an atrial septal defect or patent foramen ovale as noted on 2-D or Doppler imaging. AORTIC VALVE The aortic valve is not well visualized. Doppler and Color Flow revealed no significant aortic regurg itation. There is no significant aortic valvular stenosis. MITRAL VALVE The mitral valve is normal in structure and function. There is no evidence of mitral valve prolapse. There is no mitral valve stenosis. Doppler and Color Flow revealed no mitral valve regurgitation note d. TRICUSPID VALVE The tricuspid valve is not well visualized. Doppler and Color Flow revealed no tricuspid valve regurg itation noted. There is no tricuspid valve stenosis. PULMONIC VALVE The pulmonic valve is not well visualized. Doppler and Color Flow revealed no pulmonic valvular regur gitation. GREAT VESSELS The aortic root is normal in size. The IVC is normal in size and collapses >50% with inspiration. PERICARDIAL EFFUSION There is no evidence of significant pericardial effusion. Critical Notification Critical Value: No <Conclusion> The left ventricular systolic function is normal. The ejection fraction is estimated at 65%. There is normal LV segmental wall motion. There is no evidence of significant pericardial effusion. Signed by : Avery Francis, Electronically Approved : 03/23/2018 10:14:50
[2018-03-23 11:00] VITALS: BP 139/81
--- NOTE | 2018-03-23 12:40 | PDOC ---
VICKI MONAE TIER AND DETONATOR 03/23/18 1240: CARDIO Progress Notes Date and Time Date of Service 03/23/18 Time of Evaluation 1110 Subjective Subjective: No Chest Pain, No shortness of breath, No Palpitations Vitals Vitals Vital Signs Date Time Temp Pulse Resp B/P (MAP) Pulse Ox O2 Delivery O2 Flow Rate FiO2 03/23/18 11:00 97.7 61 18 139/81 (100) 96 Room Air 97.7 Weight Weight [ ] Input and Output Intake and Output Intake and Output 03/23/18 07:01 Intake Total 0 ml Output Total 1225 ml Balance -1225 ml Intake Oral 0 ml Output Urine Total 1225 ml # Bowel Movements 1 Laboratory Labs Laboratory Tests Test 03/22/18 14:15 03/23/18 04:10 Troponin I Quantitative 0.073 ng/mL (0.000-0.055) White Blood Count 13.5 x10^3/uL (4.0-11.0) Red Blood Count 5.48 x10^6/uL (4.30-5.70) Hemoglobin 16.5 g/dL (13.0-17.5) Hematocrit 50.6 % (39.0-53.0) Mean Corpuscular Volume 92 fL (79-100) Mean Corpuscular Hemoglobin 30 pg (25-35) Mean Corpuscular Hemoglobin Concent 33 g/dL (31-37) Red Cell Distribution Width 15.6 % (11.5-14.5) Platelet Count 260 x10^3/uL (140-400) Neutrophils (%) (Auto) 70 % (31-73) Lymphocytes (%) (Auto) 21 % (24-48) Monocytes (%) (Auto) 8 % (0-9) Eosinophils (%) (Auto) 1 % (0-3) Basophils (%) (Auto) 0 % (0-3) Neutrophils # (Auto) 9.5 x10^3uL (1.8-7.7) Lymphocytes # (Auto) 2.9 x10^3/uL (1.0-4.8) Monocytes # (Auto) 1.0 x10^3/uL (0.0-1.1) Eosinophils # (Auto) 0.1 x10^3/uL (0.0-0.7) Basophils # (Auto) 0.0 x10^3/uL (0.0-0.2) Sodium Level 135 mmol/L (136-145) Potassium Level 4.1 mmol/L (3.5-5.1) Chloride Level 105 mmol/L (98-107) Carbon Dioxide Level 20 mmol/L (21-32) Anion Gap 10 (6-14) Blood Urea Nitrogen 16 mg/dL (8-26) Creatinine 1.1 mg/dL (0.7-1.3) Estimated GFR (Cockcroft-Gault) 66.6 Glucose Level 114 mg/dL (70-99) Calcium Level 8.9 mg/dL (8.5-10.1) Triglycerides Level 124 mg/dL (0-150) Cholesterol Level 153 mg/dL (0-200) LDL Cholesterol, Calculated 98 mg/dL (0-100) VLDL Cholesterol, Calculated 25 mg/dL (0-40) Non-HDL Cholesterol Calculated 123 mg/dL (0-129) HDL Cholesterol 30 mg/dL (40-60) Cholesterol/HDL Ratio 5.1 Physical Exam HEENT: Neck Supple W Full Motion Chest: Symmetric LUNGS: Clear to Auscultation Heart: S1S2, RRR Abdomen: Soft N/T Extremities: No Edema Neurology: alert, oriented, follow commands Assessment Assessment 1. AFIB; new onset. Maintaining SR. Continue Cardizem for rate control. Eliquis for stroke prophylaxis. Echo showed normal LV systolic function. 2. Accelerated hypertension; better controlled with addition of lisinopril. Renal artery duplex notable for > 60% stenosis of the proximal right renal artery. 3. Chest pain, atypical. Most probably secondary to #2. 4. NSTEMI; highest 0.073. most probably type II, demand ischemia secondary to RVR and uncontrolled hypertension. Patient refused MPI today 5. Abdominal aortic aneurysm; measuring 4.4 cm. vascular surgery consulted. Patient refusing further evaluation. MILIND ABDALLA MD 03/23/18 2059: CARDIO Progress Notes Assessment Assessment Patient seen and examined. Agree with GLO[employer]IM[employer] CHANGE RESEARCHER's assessment and plan. 2-D echo showed normal LV systolic function. Maintaining sinus rhythm. Continue current medications including Cardizem and eliquis We will plan for MPI as an outpatient. We will also address the renal artery stenosis and AAA as outpatient. VICKI MONAE APRN Mar 23, 2018 12:40 MILIND ABDALLA MD Mar 23, 2018 16:07
--- NOTE | 2018-03-23 12:45 | PDOC2 ---
CONSULT Date of Consult Date of Consult DATE: 03/23/18 TIME: 12:25 Reason for Consult Reason for Consult: Abdominal aortic aneurysm Referring Physician Referring Physician: Dr. Costa Identification/Chief Complaint Chief Complaint Chest pain Source Source: Chart review, Patient History of Present Illness Reason for Visit: 67-year-old male presented to the emergency room with chest pain 1 day. He was noted to have hypertension and new onset atrial fibrillation. Patient has been placed on Eliquis and Cardizem. Abdominal ultrasound revealed an abdominal aortic aneurysm, this is new information to the patient. Currently the patient denies any chest pain, palpitations or dizziness. The patient denies any abdominal or back pain. He does complain of lower extremity claudication. He can only walk a short distance prior to thigh and calf cramping, which resolves with rest. Patient denies any TIA or strokelike symptoms. Patient notes he has had claudication for several years, this is been evaluated at the [place], patient stating they did not recommend any additional arterial evaluation or intervention. The patient is anxious and would like to discharge home and proceed with any additional evaluation on an outpatient basis. Past Medical History Cardiovascular: HTN Past Surgical History Past Surgical History: No pertinent history Family History Family History: Hypertension Social History 1 pack per day ALCOHOL: rare Drugs: None Current Medications Current Medications Current Medications Diltiazem HCl (Cardizem Iv Push) 10 mg 1X ONCE IVP Last administered on at 04:05; Start 03/22/18 at 04:00; Stop 03/22/18 at 04:01; Status DC Diltiazem HCl 125 mg/Dextrose 125 ml @ 5 mls/hr CONT PRN IV SEE I/O RECORD Last administered on 03/22/18at 04:10; Start 03/22/18 at 04:00; Stop 03/22/18 at 16: 36; Status DC Nitroglycerin/ Dextrose 250 ml @ 0 mls/hr 1X ONCE IV Last administered on at 04:13; Start 03/22/18 at 04:00; Stop 03/22/18 at 16:36; Status DC Nitroglycerin/ Dextrose 250 ml @ As Directed STK-MED ONCE IV ; Start 03/22/18 at 03:59; Stop 03/22/18 at 04:00; Status DC Diltiazem HCl (Cardizem Iv Push) 20 mg 1X ONCE IVP Last administered on at 04:20; Start 03/22/18 at 04:30; Stop 03/22/18 at 04:31; Status DC Sodium Chloride 1,000 ml @ 1,000 mls/hr 1X ONCE IV Last administered on at 05:30; Start 03/22/18 at 04:45; Stop 03/22/18 at 05:44; Status DC Apixaban (Eliquis) 5 mg 1X ONCE PO Last administered on 03/22/18at 05:03; Start 03/22/18 at 05:00; Stop 03/22/18 at 05:01; Status DC Nitroglycerin (Nitrostat) 0.4 mg PRN Q5MIN PRN SL CHEST PAIN; Start 03/22/18 at 05:00; Stop 03/23/18 at 04:59; Status DC Influenza Virus Vaccine (Afluria Trivalent [id number] Syringe) 0.5 ml ONCE ONCE VAX IM Last administered on 03/23/18at 10:54; Start 03/22/18 at 09:00; Stop at 09:01; Status DC Diltiazem HCl (Cardizem 24hr Cd) 120 mg DAILY PO Last administered on 03/23/18at 10:02; Start 03/22/18 at 10:00 Apixaban (Eliquis) 5 mg BID PO Last administered on 03/23/18at 10:02; Start at 21:00 Acetaminophen (Tylenol) 650 mg PRN Q6HRS PRN PO FEVER; Start 03/22/18 at 10:00 Ondansetron HCl (Zofran) 4 mg PRN Q6HRS PRN IV NAUSEA/VOMITING; Start 03/22/18 at 10:00 Morphine Sulfate (Morphine Sulfate) 2 mg PRN Q2HR PRN IV MODERATE TO SEVERE PAIN; Start 03/22/18 at 10:00 Tramadol HCl (Ultram) 50 mg PRN Q6HRS PRN PO MILD TO MODERATE PAIN; Start at 10:00 Hydralazine HCl (Apresoline Inj) 10 mg PRN Q4HRS PRN IVP ELEVATED BP, SEE COMMENTS Last administered on 03/23/18at 00:08; Start 03/22/18 at 10:00 Docusate Sodium (Colace) 100 mg PRN DAILY PRN PO CONSTIPATION; Start 03/22/18 at 10:00 Lisinopril (Prinivil) 40 mg DAILY PO Last administered on 03/23/18at 10:02; Start 03/22/18 at 10:30 Info (Anti-Coagulation Monitoring By Pharmacy) 1 each PRN DAILY PRN MC SEE COMMENTS; Start 03/22/18 at 17:45 Labetalol HCl (Trandate) 200 mg BID PO Last administered on 03/23/18at 10:03; Start 03/22/18 at 18:15 Regadenoson (Lexiscan) 0.4 mg 1X ONCE IV ; Start 03/23/18 at 07:30; Stop at 07:31; Status DC Allergies Allergies: Coded Allergies: No Known Drug Allergies (Unverified , 03/22/18) ROS Review of System GEN: Denies fevers, chills, sweats HEENT: Denies blurred vision, sore throat CV: Denies chest pain. palpitations RESP: Denies shortness of air, cough GI: Denies nausea, vomiting or abdominal apin : Denies hematuria, dysuria ENDO: Denies weight changes NEURO: No gross deficits MSK: as per HPI SKIN: No lesions, rashes or ulcers Physical Exam General: Alert, Oriented X3 Lungs: Clear to auscultation, Normal air movement Heart: Regular rate Abdomen: Normal bowel sounds, Soft, No tenderness, Other (palpable abdominal mass) Extremities: Other (2 radial pulses, 1 left femoral pulse, unable to appreciate right femoral or distal pulses, no palpable popliteal masses) Skin: No rashes, No significant lesion Neuro: Normal speech, Normal tone, Sensation intact MUSCULOSKELETAL: Full range of motion without pain Vitals VITALS Vital Signs Date Time Temp Pulse Resp B/P (MAP) Pulse Ox O2 Delivery O2 Flow Rate FiO2 03/23/18 11:00 97.7 61 18 139/81 (100) 96 Room Air 97.7 Labs Labs Laboratory Tests Test 03/22/18 04:20 03/22/18 05:09 03/22/18 09:42 03/22/18 14:15 White Blood Count 15.6 x10^3/uL (4.0-11.0) Red Blood Count 6.51 x10^6/uL (4.30-5.70) Hemoglobin 19.5 g/dL (13.0-17.5) Hematocrit 56.8 % (39.0-53.0) Mean Corpuscular Volume 87 fL (79-100) Mean Corpuscular Hemoglobin 30 pg (25-35) Mean Corpuscular Hemoglobin Concent 34 g/dL (31-37) Red Cell Distribution Width 14.4 % (11.5-14.5) Platelet Count 283 x10^3/uL (140-400) Neutrophils (%) (Auto) 68 % (31-73) Lymphocytes (%) (Auto) 21 % (24-48) Monocytes (%) (Auto) 9 % (0-9) Eosinophils (%) (Auto) 1 % (0-3) Basophils (%) (Auto) 1 % (0-3) Neutrophils # (Auto) 10.5 x10^3uL (1.8-7.7) Lymphocytes # (Auto) 3.3 x10^3/uL (1.0-4.8) Monocytes # (Auto) 1.4 x10^3/uL (0.0-1.1) Eosinophils # (Auto) 0.2 x10^3/uL (0.0-0.7) Basophils # (Auto) 0.1 x10^3/uL (0.0-0.2) Prothrombin Time 12.8 SEC (11.7-14.0) Prothromb Time International Ratio 1.0 (0.8-1.1) Sodium Level 140 mmol/L (136-145) Potassium Level 4.2 mmol/L (3.5-5.1) Chloride Level 102 mmol/L (98-107) Carbon Dioxide Level 25 mmol/L (21-32) Anion Gap 13 (6-14) Blood Urea Nitrogen 11 mg/dL (8-26) Creatinine 0.9 mg/dL (0.7-1.3) Estimated GFR (Cockcroft-Gault) 83.9 BUN/Creatinine Ratio 12 (6-20) Glucose Level 126 mg/dL (70-99) Calcium Level 9.5 mg/dL (8.5-10.1) Magnesium Level 2.1 mg/dL (1.8-2.4) Total Bilirubin 0.5 mg/dL (0.2-1.0) Aspartate Amino Transf (AST/SGOT) 16 U/L (15-37) Alanine Aminotransferase (ALT/SGPT) 17 U/L (16-63) Alkaline Phosphatase 101 U/L (46-116) Troponin I Quantitative < 0.017 ng/mL (0.000-0.055) 0.042 ng/mL (0.000-0.055) 0.073 ng/mL (0.000-0.055) FJ-Umg-L-Type Natriuretic Peptide 323 pg/mL (0-124) Total Protein 7.7 g/dL (6.4-8.2) Albumin 4.0 g/dL (3.4-5.0) Albumin/Globulin Ratio 1.1 (1.0-1.7) Thyroid Stimulating Hormone (TSH) 3.030 uIU/mL (0.358-3.74) Ethyl Alcohol Level < 10 mg/dL (0-10) Urine Collection Type Unknown Urine Color Yellow Urine Clarity Clear Urine pH 7.5 Urine Specific [place] 1.010 Urine Protein Negative mg/dL (NEG-TRACE) Urine Glucose (UA) Negative mg/dL (NEG) Urine Ketones (Stick) Trace mg/dL (NEG) Urine Blood Trace (NEG) Urine Nitrite Negative (NEG) Urine Bilirubin Negative (NEG) Urine Urobilinogen Dipstick 0.2 mg/dL (0.2 mg/dL) Urine Leukocyte Esterase Negative (NEG) Urine RBC 3-5 /HPF (0-2) Urine WBC 0 /HPF (0-4) Urine Squamous Epithelial Cells Occ /LPF Urine Bacteria 0 /HPF (0-FEW) Urine Mucus Slight /LPF Urine Opiates Screen Neg (NEG) Urine Methadone Screen Neg (NEG) Urine Barbiturates Neg (NEG) Urine Phencyclidine Screen Neg (NEG) Urine Amphetamine/Methamphetamine Neg (NEG) Urine Benzodiazepines Screen Neg (NEG) Urine Cocaine Screen Neg (NEG) Urine Cannabinoids Screen Neg (NEG) Urine Ethyl Alcohol Neg (NEG) Test 03/23/18 04:10 White Blood Count 13.5 x10^3/uL (4.0-11.0) Red Blood Count 5.48 x10^6/uL (4.30-5.70) Hemoglobin 16.5 g/dL (13.0-17.5) Hematocrit 50.6 % (39.0-53.0) Mean Corpuscular Volume 92 fL (79-100) Mean Corpuscular Hemoglobin 30 pg (25-35) Mean Corpuscular Hemoglobin Concent 33 g/dL (31-37) Red Cell Distribution Width 15.6 % (11.5-14.5) Platelet Count 260 x10^3/uL (140-400) Neutrophils (%) (Auto) 70 % (31-73) Lymphocytes (%) (Auto) 21 % (24-48) Monocytes (%) (Auto) 8 % (0-9) Eosinophils (%) (Auto) 1 % (0-3) Basophils (%) (Auto) 0 % (0-3) Neutrophils # (Auto) 9.5 x10^3uL (1.8-7.7) Lymphocytes # (Auto) 2.9 x10^3/uL (1.0-4.8) Monocytes # (Auto) 1.0 x10^3/uL (0.0-1.1) Eosinophils # (Auto) 0.1 x10^3/uL (0.0-0.7) Basophils # (Auto) 0.0 x10^3/uL (0.0-0.2) Sodium Level 135 mmol/L (136-145) Potassium Level 4.1 mmol/L (3.5-5.1) Chloride Level 105 mmol/L (98-107) Carbon Dioxide Level 20 mmol/L (21-32) Anion Gap 10 (6-14) Blood Urea Nitrogen 16 mg/dL (8-26) Creatinine 1.1 mg/dL (0.7-1.3) Estimated GFR (Cockcroft-Gault) 66.6 Glucose Level 114 mg/dL (70-99) Calcium Level 8.9 mg/dL (8.5-10.1) Triglycerides Level 124 mg/dL (0-150) Cholesterol Level 153 mg/dL (0-200) LDL Cholesterol, Calculated 98 mg/dL (0-100) VLDL Cholesterol, Calculated 25 mg/dL (0-40) Non-HDL Cholesterol Calculated 123 mg/dL (0-129) HDL Cholesterol 30 mg/dL (40-60) Cholesterol/HDL Ratio 5.1 Laboratory Tests Test 03/22/18 14:15 03/23/18 04:10 Troponin I Quantitative 0.073 ng/mL (0.000-0.055) White Blood Count 13.5 x10^3/uL (4.0-11.0) Red Blood Count 5.48 x10^6/uL (4.30-5.70) Hemoglobin 16.5 g/dL (13.0-17.5) Hematocrit 50.6 % (39.0-53.0) Mean Corpuscular Volume 92 fL (79-100) Mean Corpuscular Hemoglobin 30 pg (25-35) Mean Corpuscular Hemoglobin Concent 33 g/dL (31-37) Red Cell Distribution Width 15.6 % (11.5-14.5) Platelet Count 260 x10^3/uL (140-400) Neutrophils (%) (Auto) 70 % (31-73) Lymphocytes (%) (Auto) 21 % (24-48) Monocytes (%) (Auto) 8 % (0-9) Eosinophils (%) (Auto) 1 % (0-3) Basophils (%) (Auto) 0 % (0-3) Neutrophils # (Auto) 9.5 x10^3uL (1.8-7.7) Lymphocytes # (Auto) 2.9 x10^3/uL (1.0-4.8) Monocytes # (Auto) 1.0 x10^3/uL (0.0-1.1) Eosinophils # (Auto) 0.1 x10^3/uL (0.0-0.7) Basophils # (Auto) 0.0 x10^3/uL (0.0-0.2) Sodium Level 135 mmol/L (136-145) Potassium Level 4.1 mmol/L (3.5-5.1) Chloride Level 105 mmol/L (98-107) Carbon Dioxide Level 20 mmol/L (21-32) Anion Gap 10 (6-14) Blood Urea Nitrogen 16 mg/dL (8-26) Creatinine 1.1 mg/dL (0.7-1.3) Estimated GFR (Cockcroft-Gault) 66.6 Glucose Level 114 mg/dL (70-99) Calcium Level 8.9 mg/dL (8.5-10.1) Triglycerides Level 124 mg/dL (0-150) Cholesterol Level 153 mg/dL (0-200) LDL Cholesterol, Calculated 98 mg/dL (0-100) VLDL Cholesterol, Calculated 25 mg/dL (0-40) Non-HDL Cholesterol Calculated 123 mg/dL (0-129) HDL Cholesterol 30 mg/dL (40-60) Cholesterol/HDL Ratio 5.1 Images Images Renal artery duplex Findings: Abdominal aorta peak systolic velocity: 61 cm/sec. The proximal abdominal aorta diameter is 4 cm. The mid abdominal aorta diameter is 4.4 x 4.7 cm. There appears to be mural thrombus. Distal abdominal aorta diameters 3.4 cm. Right main renal artery peak systolic velocity: 278 cm/sec. Right renal artery to aorta ratio: 4.5 Left main renal artery peak systolic velocity: 158 cm/sec. Left renal artery to aorta ratio: 2.5 Renal veins are patent. The right kidney measures 9.8 cm. The left kidney measures 9.9 cm. Kidneys are normal in echotexture. No hydronephrosis. IMPRESSION: 1. 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 2. Abdominal aortic aneurysm. Assessment/Plan Assessment/Plan Assessment: 1. Asymptomatic abdominal aortic aneurysm measuring 4.4 cm 2. Peripheral vascular disease, symptomatic bilateral lower extremity claudication. 3. Atrial fibrillation 4. Hypertension Recommendation: Would recommend follow-up abdominal ultrasound in 6 months. Recommend follow-up as an outpatient in our office for bilateral lower extremity arterial ultrasounds. Discussed risk factor modification with patient recommend smoking cessation, hypertension and hyperlipidemia management. In addition discussed exercise plan for peripheral arterial disease. Dr. Sosa will see this patient, review this plan and make additional recommendations as needed. Thank you for the opportunity for participating in the care of this patient Thank you for the opportunity to evaluate this patient Discussed plan of care with Dr. Aceves recommend CTA with runoff to evaluate aneurysm and lower extremity peripheral vascular disease. Patient at this point is unsure if he wants to proceed with the testing. He did agree to follow up in our office in 2-3 weeks. Will make arrangements. HAYDEE FERRARI APRN Mar 23, 2018 12:45
[2018-03-23] MEDS ORDERED: IOHEXOL 300 MG/ML 100ML VIAL. IV ONE (14:00)
--- NOTE | 2018-03-23 14:09 | PDOC ---
PROGRESS NOTES Chief Complaint Chief Complaint chest pain, could be unstable angina, with rapid afib, HTN urgency HTN urgency New onset rapid afib tobaccoism AAA 4.4 cm bl leg pain, likely PAD with claudication plan: fu with card check CE, neg so far check echo EF 605%, tsh, lipid panel add cardizem as per card, off cardizem and nitro drip add lisinopril educated pt to dc smoking add eliquis refused eliquis to go home. get sw. i talked to pt for 20min today, told him about AAA and recommend vascular consult, and US for PAD. HOWEVER, pt refused MPI ordered by card, and refused US and wants to go home. vascular saw pt , ordered abd CTA runoff. pt possible sign AMA. History of Present Illness History of Present Illness bp better refused MPI, and US. wants to go home refused eliquis to go home. Vitals Vitals Vital Signs Date Time Temp Pulse Resp B/P (MAP) Pulse Ox O2 Delivery O2 Flow Rate FiO2 03/23/18 11:00 97.7 61 18 139/81 (100) 96 Room Air 97.7 Physical Exam General: Alert, Oriented X3 Heart: Regular rate Abdomen: Normal bowel sounds, Soft, No tenderness, Other (palpable abdominal mass) Extremities: Other (2 radial pulses, 1 left femoral pulse, unable to appreciate right femoral or distal pulses, no palpable popliteal masses) Skin: No rashes, No significant lesion Labs LABS Laboratory Tests Test 03/22/18 14:15 03/23/18 04:10 Troponin I Quantitative 0.073 ng/mL (0.000-0.055) White Blood Count 13.5 x10^3/uL (4.0-11.0) Red Blood Count 5.48 x10^6/uL (4.30-5.70) Hemoglobin 16.5 g/dL (13.0-17.5) Hematocrit 50.6 % (39.0-53.0) Mean Corpuscular Volume 92 fL (79-100) Mean Corpuscular Hemoglobin 30 pg (25-35) Mean Corpuscular Hemoglobin Concent 33 g/dL (31-37) Red Cell Distribution Width 15.6 % (11.5-14.5) Platelet Count 260 x10^3/uL (140-400) Neutrophils (%) (Auto) 70 % (31-73) Lymphocytes (%) (Auto) 21 % (24-48) Monocytes (%) (Auto) 8 % (0-9) Eosinophils (%) (Auto) 1 % (0-3) Basophils (%) (Auto) 0 % (0-3) Neutrophils # (Auto) 9.5 x10^3uL (1.8-7.7) Lymphocytes # (Auto) 2.9 x10^3/uL (1.0-4.8) Monocytes # (Auto) 1.0 x10^3/uL (0.0-1.1) Eosinophils # (Auto) 0.1 x10^3/uL (0.0-0.7) Basophils # (Auto) 0.0 x10^3/uL (0.0-0.2) Sodium Level 135 mmol/L (136-145) Potassium Level 4.1 mmol/L (3.5-5.1) Chloride Level 105 mmol/L (98-107) Carbon Dioxide Level 20 mmol/L (21-32) Anion Gap 10 (6-14) Blood Urea Nitrogen 16 mg/dL (8-26) Creatinine 1.1 mg/dL (0.7-1.3) Estimated GFR (Cockcroft-Gault) 66.6 Glucose Level 114 mg/dL (70-99) Calcium Level 8.9 mg/dL (8.5-10.1) Triglycerides Level 124 mg/dL (0-150) Cholesterol Level 153 mg/dL (0-200) LDL Cholesterol, Calculated 98 mg/dL (0-100) VLDL Cholesterol, Calculated 25 mg/dL (0-40) Non-HDL Cholesterol Calculated 123 mg/dL (0-129) HDL Cholesterol 30 mg/dL (40-60) Cholesterol/HDL Ratio 5.1 Comment Review of Relevant I have reviewed the following items chandler (where applicable) has been applied. Labs Laboratory Tests Test 03/22/18 04:20 03/22/18 05:09 03/22/18 09:42 03/22/18 14:15 White Blood Count 15.6 x10^3/uL (4.0-11.0) Red Blood Count 6.51 x10^6/uL (4.30-5.70) Hemoglobin 19.5 g/dL (13.0-17.5) Hematocrit 56.8 % (39.0-53.0) Mean Corpuscular Volume 87 fL (79-100) Mean Corpuscular Hemoglobin 30 pg (25-35) Mean Corpuscular Hemoglobin Concent 34 g/dL (31-37) Red Cell Distribution Width 14.4 % (11.5-14.5) Platelet Count 283 x10^3/uL (140-400) Neutrophils (%) (Auto) 68 % (31-73) Lymphocytes (%) (Auto) 21 % (24-48) Monocytes (%) (Auto) 9 % (0-9) Eosinophils (%) (Auto) 1 % (0-3) Basophils (%) (Auto) 1 % (0-3) Neutrophils # (Auto) 10.5 x10^3uL (1.8-7.7) Lymphocytes # (Auto) 3.3 x10^3/uL (1.0-4.8) Monocytes # (Auto) 1.4 x10^3/uL (0.0-1.1) Eosinophils # (Auto) 0.2 x10^3/uL (0.0-0.7) Basophils # (Auto) 0.1 x10^3/uL (0.0-0.2) Prothrombin Time 12.8 SEC (11.7-14.0) Prothromb Time International Ratio 1.0 (0.8-1.1) Sodium Level 140 mmol/L (136-145) Potassium Level 4.2 mmol/L (3.5-5.1) Chloride Level 102 mmol/L (98-107) Carbon Dioxide Level 25 mmol/L (21-32) Anion Gap 13 (6-14) Blood Urea Nitrogen 11 mg/dL (8-26) Creatinine 0.9 mg/dL (0.7-1.3) Estimated GFR (Cockcroft-Gault) 83.9 BUN/Creatinine Ratio 12 (6-20) Glucose Level 126 mg/dL (70-99) Calcium Level 9.5 mg/dL (8.5-10.1) Magnesium Level 2.1 mg/dL (1.8-2.4) Total Bilirubin 0.5 mg/dL (0.2-1.0) Aspartate Amino Transf (AST/SGOT) 16 U/L (15-37) Alanine Aminotransferase (ALT/SGPT) 17 U/L (16-63) Alkaline Phosphatase 101 U/L (46-116) Troponin I Quantitative < 0.017 ng/mL (0.000-0.055) 0.042 ng/mL (0.000-0.055) 0.073 ng/mL (0.000-0.055) QQ-Ivf-Z-Type Natriuretic Peptide 323 pg/mL (0-124) Total Protein 7.7 g/dL (6.4-8.2) Albumin 4.0 g/dL (3.4-5.0) Albumin/Globulin Ratio 1.1 (1.0-1.7) Thyroid Stimulating Hormone (TSH) 3.030 uIU/mL (0.358-3.74) Ethyl Alcohol Level < 10 mg/dL (0-10) Urine Collection Type Unknown Urine Color Yellow Urine Clarity Clear Urine pH 7.5 Urine Specific [place] 1.010 Urine Protein Negative mg/dL (NEG-TRACE) Urine Glucose (UA) Negative mg/dL (NEG) Urine Ketones (Stick) Trace mg/dL (NEG) Urine Blood Trace (NEG) Urine Nitrite Negative (NEG) Urine Bilirubin Negative (NEG) Urine Urobilinogen Dipstick 0.2 mg/dL (0.2 mg/dL) Urine Leukocyte Esterase Negative (NEG) Urine RBC 3-5 /HPF (0-2) Urine WBC 0 /HPF (0-4) Urine Squamous Epithelial Cells Occ /LPF Urine Bacteria 0 /HPF (0-FEW) Urine Mucus Slight /LPF Urine Opiates Screen Neg (NEG) Urine Methadone Screen Neg (NEG) Urine Barbiturates Neg (NEG) Urine Phencyclidine Screen Neg (NEG) Urine Amphetamine/Methamphetamine Neg (NEG) Urine Benzodiazepines Screen Neg (NEG) Urine Cocaine Screen Neg (NEG) Urine Cannabinoids Screen Neg (NEG) Urine Ethyl Alcohol Neg (NEG) Test 03/23/18 04:10 White Blood Count 13.5 x10^3/uL (4.0-11.0) Red Blood Count 5.48 x10^6/uL (4.30-5.70) Hemoglobin 16.5 g/dL (13.0-17.5) Hematocrit 50.6 % (39.0-53.0) Mean Corpuscular Volume 92 fL (79-100) Mean Corpuscular Hemoglobin 30 pg (25-35) Mean Corpuscular Hemoglobin Concent 33 g/dL (31-37) Red Cell Distribution Width 15.6 % (11.5-14.5) Platelet Count 260 x10^3/uL (140-400) Neutrophils (%) (Auto) 70 % (31-73) Lymphocytes (%) (Auto) 21 % (24-48) Monocytes (%) (Auto) 8 % (0-9) Eosinophils (%) (Auto) 1 % (0-3) Basophils (%) (Auto) 0 % (0-3) Neutrophils # (Auto) 9.5 x10^3uL (1.8-7.7) Lymphocytes # (Auto) 2.9 x10^3/uL (1.0-4.8) Monocytes # (Auto) 1.0 x10^3/uL (0.0-1.1) Eosinophils # (Auto) 0.1 x10^3/uL (0.0-0.7) Basophils # (Auto) 0.0 x10^3/uL (0.0-0.2) Sodium Level 135 mmol/L (136-145) Potassium Level 4.1 mmol/L (3.5-5.1) Chloride Level 105 mmol/L (98-107) Carbon Dioxide Level 20 mmol/L (21-32) Anion Gap 10 (6-14) Blood Urea Nitrogen 16 mg/dL (8-26) Creatinine 1.1 mg/dL (0.7-1.3) Estimated GFR (Cockcroft-Gault) 66.6 Glucose Level 114 mg/dL (70-99) Calcium Level 8.9 mg/dL (8.5-10.1) Triglycerides Level 124 mg/dL (0-150) Cholesterol Level 153 mg/dL (0-200) LDL Cholesterol, Calculated 98 mg/dL (0-100) VLDL Cholesterol, Calculated 25 mg/dL (0-40) Non-HDL Cholesterol Calculated 123 mg/dL (0-129) HDL Cholesterol 30 mg/dL (40-60) Cholesterol/HDL Ratio 5.1 Laboratory Tests Test 03/22/18 14:15 03/23/18 04:10 Troponin I Quantitative 0.073 ng/mL (0.000-0.055) White Blood Count 13.5 x10^3/uL (4.0-11.0) Red Blood Count 5.48 x10^6/uL (4.30-5.70) Hemoglobin 16.5 g/dL (13.0-17.5) Hematocrit 50.6 % (39.0-53.0) Mean Corpuscular Volume 92 fL (79-100) Mean Corpuscular Hemoglobin 30 pg (25-35) Mean Corpuscular Hemoglobin Concent 33 g/dL (31-37) Red Cell Distribution Width 15.6 % (11.5-14.5) Platelet Count 260 x10^3/uL (140-400) Neutrophils (%) (Auto) 70 % (31-73) Lymphocytes (%) (Auto) 21 % (24-48) Monocytes (%) (Auto) 8 % (0-9) Eosinophils (%) (Auto) 1 % (0-3) Basophils (%) (Auto) 0 % (0-3) Neutrophils # (Auto) 9.5 x10^3uL (1.8-7.7) Lymphocytes # (Auto) 2.9 x10^3/uL (1.0-4.8) Monocytes # (Auto) 1.0 x10^3/uL (0.0-1.1) Eosinophils # (Auto) 0.1 x10^3/uL (0.0-0.7) Basophils # (Auto) 0.0 x10^3/uL (0.0-0.2) Sodium Level 135 mmol/L (136-145) Potassium Level 4.1 mmol/L (3.5-5.1) Chloride Level 105 mmol/L (98-107) Carbon Dioxide Level 20 mmol/L (21-32) Anion Gap 10 (6-14) Blood Urea Nitrogen 16 mg/dL (8-26) Creatinine 1.1 mg/dL (0.7-1.3) Estimated GFR (Cockcroft-Gault) 66.6 Glucose Level 114 mg/dL (70-99) Calcium Level 8.9 mg/dL (8.5-10.1) Triglycerides Level 124 mg/dL (0-150) Cholesterol Level 153 mg/dL (0-200) LDL Cholesterol, Calculated 98 mg/dL (0-100) VLDL Cholesterol, Calculated 25 mg/dL (0-40) Non-HDL Cholesterol Calculated 123 mg/dL (0-129) HDL Cholesterol 30 mg/dL (40-60) Cholesterol/HDL Ratio 5.1 Medications Current Medications Diltiazem HCl (Cardizem Iv Push) 10 mg 1X ONCE IVP Last administered on at 04:05; Start 03/22/18 at 04:00; Stop 03/22/18 at 04:01; Status DC Diltiazem HCl 125 mg/Dextrose 125 ml @ 5 mls/hr CONT PRN IV SEE I/O RECORD Last administered on 03/22/18at 04:10; Start 03/22/18 at 04:00; Stop 03/22/18 at 16: 36; Status DC Nitroglycerin/ Dextrose 250 ml @ 0 mls/hr 1X ONCE IV Last administered on at 04:13; Start 03/22/18 at 04:00; Stop 03/22/18 at 16:36; Status DC Nitroglycerin/ Dextrose 250 ml @ As Directed STK-MED ONCE IV ; Start 03/22/18 at 03:59; Stop 03/22/18 at 04:00; Status DC Diltiazem HCl (Cardizem Iv Push) 20 mg 1X ONCE IVP Last administered on at 04:20; Start 03/22/18 at 04:30; Stop 03/22/18 at 04:31; Status DC Sodium Chloride 1,000 ml @ 1,000 mls/hr 1X ONCE IV Last administered on at 05:30; Start 03/22/18 at 04:45; Stop 03/22/18 at 05:44; Status DC Apixaban (Eliquis) 5 mg 1X ONCE PO Last administered on 03/22/18at 05:03; Start 03/22/18 at 05:00; Stop 03/22/18 at 05:01; Status DC Nitroglycerin (Nitrostat) 0.4 mg PRN Q5MIN PRN SL CHEST PAIN; Start 03/22/18 at 05:00; Stop 03/23/18 at 04:59; Status DC Influenza Virus Vaccine (Afluria Trivalent [id number] Syringe) 0.5 ml ONCE ONCE VAX IM Last administered on 03/23/18at 10:54; Start 03/22/18 at 09:00; Stop at 09:01; Status DC Diltiazem HCl (Cardizem 24hr Cd) 120 mg DAILY PO Last administered on 03/23/18at 10:02; Start 03/22/18 at 10:00 Apixaban (Eliquis) 5 mg BID PO Last administered on 03/23/18at 10:02; Start at 21:00 Acetaminophen (Tylenol) 650 mg PRN Q6HRS PRN PO FEVER; Start 03/22/18 at 10:00 Ondansetron HCl (Zofran) 4 mg PRN Q6HRS PRN IV NAUSEA/VOMITING; Start 03/22/18 at 10:00 Morphine Sulfate (Morphine Sulfate) 2 mg PRN Q2HR PRN IV MODERATE TO SEVERE PAIN; Start 03/22/18 at 10:00 Tramadol HCl (Ultram) 50 mg PRN Q6HRS PRN PO MILD TO MODERATE PAIN; Start at 10:00 Hydralazine HCl (Apresoline Inj) 10 mg PRN Q4HRS PRN IVP ELEVATED BP, SEE COMMENTS Last administered on 03/23/18at 00:08; Start 03/22/18 at 10:00 Docusate Sodium (Colace) 100 mg PRN DAILY PRN PO CONSTIPATION; Start 03/22/18 at 10:00 Lisinopril (Prinivil) 40 mg DAILY PO Last administered on 03/23/18at 10:02; Start 03/22/18 at 10:30 Info (Anti-Coagulation Monitoring By Pharmacy) 1 each PRN DAILY PRN MC SEE COMMENTS; Start 03/22/18 at 17:45 Labetalol HCl (Trandate) 200 mg BID PO Last administered on 03/23/18at 10:03; Start 03/22/18 at 18:15 Regadenoson (Lexiscan) 0.4 mg 1X ONCE IV ; Start 03/23/18 at 07:30; Stop at 07:31; Status DC Iohexol (Omnipaque 300 Mg/ml) 95 ml 1X ONCE IV ; Start 03/23/18 at 14:00; Stop 03/23/18 at 14:01; Status UNV Vitals/I & O Vital Sign - Last 24 Hours 03/22/18 03/22/18 03/22/18 03/22/18 14:15 15:00 15:15 15:15 Temp 98.5 98.5 Pulse 68 66 64 70 Resp 16 B/P (MAP) 176/80 (112) 177/84 (115) 163/77 (105) 177/84 (115) Pulse Ox 94 O2 Delivery Room Air 03/22/18 03/22/18 03/22/18 03/22/18 16:15 16:45 17:00 17:15 Pulse 66 66 70 74 B/P (MAP) 190/88 (122) 212/97 (135) 212/97 208/93 (131) 03/22/18 03/22/18 03/22/18 03/22/18 18:14 18:30 19:20 19:29 Temp 99.0 99.0 Pulse 82 66 Resp 18 B/P (MAP) 200/99 (132) 200/99 178/88 (118) Pulse Ox 95 O2 Delivery Room Air Room Air 03/22/18 03/22/18 03/23/18 03/23/18 20:21 23:15 00:05 00:08 Temp 98.5 98.5 Pulse 58 66 Resp 17 B/P (MAP) 142/72 (95) 183/84 (117) 183/84 (117) 183/84 Pulse Ox 94 O2 Delivery Room Air 03/23/18 03/23/18 03/23/18 03/23/18 03:15 07:00 08:30 10:02 Temp 97.5 98.0 97.5 98.0 Pulse 62 63 63 Resp 18 18 B/P (MAP) 127/58 (81) 149/71 (97) 149/71 Pulse Ox 95 95 O2 Delivery Room Air Room Air Room Air 03/23/18 03/23/18 03/23/18 10:02 10:03 11:00 Temp 97.7 97.7 Pulse 63 63 61 Resp 18 B/P (MAP) 149/71 149/71 139/81 (100) Pulse Ox 96 O2 Delivery Room Air Intake and Output 03/22/18 03/22/18 03/23/18 15:01 23:01 07:01 Intake Total 0 ml Output Total 825 ml 400 ml Balance -825 ml -400 ml TRAN MICHELLE MD Mar 23, 2018 14:09
--- NOTE | 2018-03-23 14:32 | NUR ---
SS following for discharge planning. Pt is from home and currently on room air. SS met with pt to discuss discharge planning. Pt reported that he is discharging to home today. Pt and pt's RN requested information on Eliquis assistance. Pt was provided with information for Eliquis assistance and 30 day free trial.
[2018-03-23 15:00] VITALS: BP 165/79
[2018-03-23] MEDS ORDERED: LABE200T4 PO (16:30)
[2018-03-23] MEDS ORDERED: dilTIAZem HCL PO (16:30)
[2018-03-23] MEDS ORDERED: APIX5TAB PO (16:30)
[2018-03-23] MEDS ORDERED: LISI-130 PO (16:30)
--- NOTE | 2018-03-23 16:31 | PDOC3 ---
Discharge Summary [facility] Date of Admission: Mar 22, 2018 Discharge Date: Mar 23, 2018 Admitting Diagnosis chest pain, could be unstable angina, with rapid afib, HTN urgency HTN urgency New onset rapid afib tobaccoism AAA 4.4 cm bl leg pain, likely PAD with claudication CONSULTS card vascular Brief Hospital Course Patient is a 67 year old M with h/o HTN, but no PCP or taking meds, came to ER for chest pain for 1 d. Pt said his BP ws not controlled well before so he stop taking meds. He started to have substernal chest pain yesterday, while watching tv, radiating to left shoulder, with diaphoresis, no sob, or N/V, denies palpitation. THE pain was 6/10, constant, gone in ER. he does occasionally drink but he stopped about 3 months ago. Denies drug use. No previous history of atrial fibrillation . he was found rapid afib in ER, now sinus. BP >200. on cardizem and nitro drip. pt's bp is better controlled with cardizem, labetolol, lisinopril. ECHO showed grade 1 diastolic CHF. eliquis started, HR bck to sinus. however, pt refused eliquis at the beginning, later agreed with 1m supply tho. i talked to pt for 20min today, told him about AAA and recommend vascular consult, and US for PAD. HOWEVER, pt refused MPI ordered by card, and refused US and wants to go home. vascular saw pt , ordered abd CTA runoff.pt cont refusing. later nurse called me and said ok to dc from vascular and card standpoint. dc with all meds prescrbied, and pt should follow up within 1-2 weeks with card and vascular , dc time 35min. Patient History: Diabetes mellitus (DM) G8 SISTER Disposition home CONDITION AT DISCHARGE: Improved Scheduled Apixaban (Eliquis), 5 MG PO BID Labetalol Hcl (Labetalol Hcl), 200 MG PO BID Lisinopril (Lisinopril), 40 MG PO DAILY [dilTIAZem HCL], 120 MG PO DAILY TRAN MICHELLE MD Mar 23, 2018 16:31
--- NOTE | 2018-03-23 17:06 | NUR ---
Pt was discharged this evening with his daughter. Discharge instructions reviewed including new medications, follow up appointments and other information including in discharge paperwork. Patient agreed to follow up appointments and new medications. Teaching given to both daughter and patient. Four medications are new for this patient and were called into [facility] in [place] by this RN per the patients daughters request. Pt was A&Ox4 and was stable. He was wheeled out to his daughters vehicle.
--- NOTE | 2018-03-24 10:26 | NUR ---
LATE ENTRY: Pt provided with BPCI letter prior to discharge on 03/23/2018.
== END 2018-03-23 17:15 | disposition home or self-care (01) | DRG 281 ==
LOC: ER 03:36 → 2 NORTH 05:07
PROVIDERS: ADMIT Internal Medicine; ATTEND Internal Medicine
DX: I21.4 Non-ST elevation (NSTEMI) myocardial infarction (principal); I50.30 Unspecified diastolic (congestive) heart failure; I16.0 Hypertensive urgency; I20.0 Unstable angina; F17.210 Nicotine dependence, cigarettes, uncomplicated; I11.0 Hypertensive heart disease with heart failure; I73.9 Peripheral vascular disease, unspecified; I70.1 Atherosclerosis of renal artery; I48.91 Unspecified atrial fibrillation; I71.4 Abdominal aortic aneurysm, without rupture; Z82.49 Family history of ischemic heart disease and other diseases of the circulatory system; Z79.899 Other long term (current) drug therapy; Z83.3 Family history of diabetes mellitus
CPT/HCPCS: 36415; 71045; 76770; 80048; 80053; 80061; 80307; 81001; 83735; 83880; 84443; 84484; 85025; 85610; 90471; 90756; 93005; 93306; 96374; 96376; 99406; G0480; J0360; J3490; J7030; 99285-25; Q2035